=== PATIENT | female | born 1955 | race Caucasian/White ===

== ENCOUNTER → 2023-11-03 07:39 | Outpatient (REF) | payer MEDICARE, OTHER, SELFPAY | LOC: HWRAD 07:39 | PROVIDERS: ATTENDING PHYSICIAN Obstetrics & Gynecology; FAMILY PHYSICIAN Nurse Practitioner | DX: Z12.31 Encounter for screening mammogram for malignant neoplasm of breast (principal); Z13.820 Encounter for screening for osteoporosis; Z78.0 Asymptomatic menopausal state | CPT/HCPCS: 77063; 77067; 77080 ==

== ENCOUNTER 2023-12-17 13:22 | Inpatient (IN) | payer MEDICARE, OTHER, SELFPAY ==
[2023-12-17] VITALS (9 sets, daily range): BP systolic 126–152; BP diastolic 64–86; BMI 25.6; BMI 24.8
--- NOTE | 2023-12-17 09:49 | EDRN ---
Dr. Mcdowell in room w/ pt.
[2023-12-17 09:55] LABS: Glucose - Point of Care 123 mg/dl (70-99)
[2023-12-17 10:01] LABS: % Basophils 0.6 % (0-2); % Immature Granulocytes 0.4 % (0-0.5); % Lymphocytes 14.7 % (20.5-51.1); % Monocytes 7.7 % (1.7-9.3); % Neutrophils 76.6 % (42.2-75.2); Absolute Basophils 0.1 10^3/uL (0-0.2); Absolute Lymphocytes 1.2 10^3/uL (1.2-3.4); Absolute Monocytes 0.6 10^3/uL (0.1-0.6); Absolute Neutrophils 6.3 10^3/uL (1.4-6.5); Hematocrit 44.2 % (37.0-47.0); Hemoglobin 15.2 g/dL (12.0-16.0); Mean Corp Hgb Conc. 34.4 g/dL (33.0-37.0); Mean Corpuscular Hgb 30.5 pg (27.0-31.0); Mean Corpuscular Volume 88.6 fL (81.0-99.0); Mean Platelet Volume 9.4 fL (7.4-10.4); Nucleated Red Blood Cells % 0 %; Platelet Count 261 10^3/uL (130-400); Red Blood Cell Count 4.99 10^6/uL (4.20-5.40); Red Cell Dist. Width 12.9 % (11.5-14.5); White Blood Cell Count 8.2 10^3/uL (4.8-10.8)
--- NOTE | 2023-12-17 10:02 | ED.CVA ---
History of Present Illness
General
Chief Complaint: CVA/TIA Symptoms
Source: patient and family
Exam Limitations: none
Time Seen by Provider: 12/17/23 09:43
Nursing documentation reviewed up to this point in time: agreed with
Onset of Stroke Symptoms
Onset of symptoms known: Yes
Date of onset of symptoms: 12/10/23
Time pt last seen normal is known: No
Date last time pt seen normal: 12/10/23
History of Present Illness
History of Present Illness:
The patient is a very pleasant 68-year-old female with a past medical history of hypertension and hyperlipidemia who reports 1 week of weakness in her right leg, causing her to drag her right leg with walking. Patient reports that she grew more
concerned when yesterday, she noticed that her right hand started to tingle and she experienced weakness in her right arm and hand. Patient reports that her handwriting has completely changed due to heaviness in the right hand. Patient states that
she nearly fell this morning trying to walk to the bathroom due to the dragging of her right foot. Patient denies any difficulty swallowing or speaking. She denies headache and vision changes. Patient states this is never happened before. She
denies neck and back pain. She denies recent injury or fever. Patient states she is very concerned because her brother about 2 years ago of ALS.
Review of Systems
Review of Systems
Allergies reviewed?: Yes
All Other Systems: ROS reviewed and negative except as documented in HPI and ROS
Constitutional: Reports fatigue
EENT: Reports no symptoms
Respiratory: Reports no symptoms
Cardiac: Reports no symptoms
ABD/GI: Reports no symptoms
: Reports no symptoms
Musculoskeletal: Reports no symptoms
Skin: Reports no symptoms
Neurological: Reports weakness and numbness
Endocrine: Reports no symptoms
Hematologic/Lymphatic: Reports no symptoms
Psychiatric: Reports no symptoms
Phy Exam
Physical Exam
Physical Exam:
Physical Exam
General: no apparent distress, not acutely ill. Well and comfortable appearing. Conversational, smiling
Neck: supple. no meningeal signs. normal psoterior pharynx
Heart: s1/s2 regular rate and rhythm, no murmur. equal radial pulses.
Lungs: no acute respiratory distress. clear bilaterally
Abdomen: normal bowel sounds. not tender. no CVAT
Neuro: alert and orientedx3. Cranial nerves equal and symmetric bilaterally. Extraocular muscles intact. Equal sensation in face and cheeks bilaterally. 5 out of 5 strength in upper extremities without drift. Patient
notes a sense of tingling and decreased sensation limited to right hand. Otherwise, patient states she has equal sensation in upper extremities bilaterally. Patient has 5 out of 5 strength in left lower extremity. Patient has mild drifting of
right lower extremity after 6 to 7 seconds but is certainly resist gravity in her right leg. Equal sensation of bilateral lower extremities. Speech sounds completely clear and normal.
Skin: no rash
Psychiatric: well kept. interactive and cooperative
Extremities: no edema. no calf tenderness. negative homans. good distal pulses
Course
Orders/Labs/Results
Orders:
Orders
12/17/23 Breakfast
Cholesterol Lowering
Cholesterol Lowering: Sodium, 2 Gram
12/17/23 09:47
Electrocardiogram (*1) Urgent
Reason for Study: Chest Pain
Cardiac Monitoring- Treatment ONCE
EKG- Treatment ONCE
IV Insert/Care/Rem.- Treatment PRN
12/17/23 09:56
Complete Blood Count/With Diff Urgent
Comprehensive Metabolic Panel Urgent
Prothrombin Time Urgent
Troponin I Urgent
12/17/23 10:03
CT Head W/o Iv Contrast Urgent
Comment:
Reason For Exam: R arm and R leg weakness/CVA
12/17/23 11:48
Dexamethasone Sod Phosphate [Decadron] 4 mg IV NOW STA
Iohexol [Omnipaque] See Protocol PO NOW STA
12/17/23 11:50
Iohexol [Omnipaque] 50 ml .ROUTE .STK-MED ONE
12/17/23 12:07
CT Chest/abd/pel W Iv Cont Urgent
Reason For Exam: malignancy
12/17/23 12:45
Neurosurgery Consult Urgent
Consulting Provider: Joel Butler
Was physician already notified: Yes
12/17/23 12:46
MRI Brain [MR Brain W/o & With Contrast] Routine
Comment:
Reason For Exam: weakness,brain masses on CT
Recent pill cam endoscopy?: Yes
12/17/23 12:47
ONCOLOGY CONSULT Urgent
Consulting Provider: Boni Wood
Was physician already notified: Yes
12/17/23 13:00
0.9% Sodium Chloride 1000 ml [Nss] 1,000 ml IV 60 mls/hr
Levetiracetam Injectable [Keppra] 500 mg IV Q12
12/17/23 13:06
CA 125 Urgent
CA 19-9 [S] Urgent
CEA Urgent
12/17/23 13:08
Admit/Transfer Patient As Directed
Co-Sign Provider:
Level of Care: Inpatient admission
Assign to:: Medical/Surgical
Physician / Group: mera heaton
Diagnosis: RLE weakness and numbness,Brain masses
Reason for Hospitalization: RLE weakness and numbness,Brain masses
Expected length of stay greater than two midnights?: Yes
ELOS- Estimated Length of Stay in days: 3
I certify the patient meets the requirements for IP care: Yes
12/17/23 13:09
PRN Pain Medication Management As Directed
May give lesser potent ordered pain med per pt: Yes
preference::
Protocol:: Medication orders for pain may be administered in a
manner that supports deferring to patient preference
when the pt is:
- Requesting an ordered lesser potent pain medication.
Least to most potent pain medications are defined
as: acetaminophen < NSAID < tramadol < opioids
(morphine, oxycodone, hydromorphone).
- Requesting a lesser dose of the same medication IF
ORDERED.
- Requesting a less intrusive route of administration
if both routes are prescribed by the provider (PO <
IV).
12/17/23 13:10
Code Status As Directed
Resuscitation Status: Full Code
12/17/23 14:25
Bisacodyl [Dulcolax] 10 mg RECTAL [id number] PRN
Docusate W/Senna [Senokot-S] 1 tablet PO BIDPRN PRN
Polyethylene Glycol Powder [Miralax] 17 grams PO DAILYPRN PRN
12/17/23 14:25
Activity As Directed
Activity Level: As Tolerated
Intake/ Output As Directed
Frequency: Per unit guidelines
Neurological Checks As Directed
Frequency: q4h
Pneumatic Compression Sleeves As Directed
Type: Knee high
Vital Signs As Directed
Frequency: Per unit guidelines
Weight As Directed
Frequency: Daily
Pulse Ox/spot Check [RESP] Routine
Quantity: 1
DX Deep Vein Thrombosis Video Routine
12/17/23 18:00
Dexamethasone Sod Phosphate [Decadron] 4 mg IV Q6H
12/18/23 06:00
Complete Blood Count/With Diff IN AM
Comprehensive Metabolic Panel IN AM
12/18/23 08:00
Amlodipine [Norvasc] 5 mg PO DAILY
12/19/23 06:00
Complete Blood Count/With Diff IN AM
Comprehensive Metabolic Panel IN AM
Abnormal Lab Results
12/17/23 12/17/23
09:54 09:56
Neutrophils % 76.6 H %
(42.2-75.2)
Lymphocytes % 14.7 L %
(20.5-51.1)
Glucose 130 H mg/dl
(70-99)
Calcium 10.3 H mg/dl
(8.4-10.2)
POC Glucose 123 H mg/dl
(70-99)
12/17/23 09:56
12/17/23 09:56
Vital Signs
Initial and Last Documented VS:
Initial Vital Signs
Temp Pulse Resp BP Pulse Ox
98.1 F 97 18 152/86 97
12/17/23 09:34 12/17/23 09:34 12/17/23 09:34 12/17/23 09:34 12/17/23 09:34
Last Documented Vital Signs
Temp Pulse Resp BP Pulse Ox
97.9 F 85 18 149/81 98
12/17/23 14:36 12/17/23 14:36 12/17/23 14:36 12/17/23 14:36 12/17/23 14:36
MDM/Problems Addressed
Differential Diagnosis Includes:
Acute CVA, intracranial mass, spinal lesion
MDM/Problems Addressed:
Patient presents with acute right arm and right leg weakness
Chronic conditions affecting care:
Given history of hypertension, patient can be under increased risk of stroke
Chronic conditions affecting care: HTN
Acute Exacerbation and/or Progression of Chronic Illness:
Patient is acutely hypertensive, however, it is not significantly and patient certainly appears anxious in the ED which could contribute to this.
Acute Exacerbation and/or Progression of Chronic Illness: HTN
*Radiology
Radiology exam reviewed: radiology read reviewed
*Pulse Oximetry
Patient hypoxic: no
*EKG
Interpreted by ED Provider?: Yes
Interpretation: abnormal
Comparison EKG: no comparison EKG present
Rate: normal
Rhythm: sinus
[place]: left axis deviation
Interval: normal interval
QRS Pattern: normal QRS
Ischemia: non-specific ST changes
*[employer] Interpretation
Rate: normal
Interpretation: normal
Rhythm: sinus
*Critical Care Note
Total Time (30-74mins, 75-104mins- exclusive of procedures): 45 minutes
comment:
45 minutes critical care given to patient including review of her lab work, CT report, discussing the case with radiology, neurology, neurosurgery as well as the hospitalist.
Patient Management
Social determinants of health affecting care: Living situation and Strong social support
Discussion with other providers: Hospitalist and Other (Neurology aware of the patient, Dr. Turcios. Neurosurgery, Dr. Butler also aware of the patient and following the patient.)
Escalation/DeEscalation of care consider admission/obs:
Neurosurgery recommended Decadron 4 mg every 6 hours which we have given her first dose here in the ED. Patient appears well and comfortable. She is fully awake, alert and speaking without any headache or any sign of distress. We will order a CAT
scan of patient's chest, abdomen and pelvis to look for any primary source of malignancy. I did talk to the patient about our concerns for possible cancer and she understands this.
ED Attending Note
-
Portions of this chart may have been created with voice recognition software.� Occasional wrong word or��sound alike� substitutions may have occurred due to the inherent limitations of voice recognition software.
Discharge Plan
Departure
Patient Disposition: Admit
Date of Disposition: 12/17/23
Time of Disposition: 11:42
Presentation/result/management discussed w/ accepting MD/DO: Hospitalist
Patient with high blood pressure during this ER visit?: Yes
Condition: Good
Covid-19: Not Applicable
Discharge Problem:
Intracranial mass with edema, Right leg and right arm weakness
Interventions
Interventions:
*Risk Screen - Suicide Last Done: 12/17/23 09:34
*General Assessment Last Done: 12/17/23 10:01
*Neglect/Abuse Screening Last Done: 12/17/23 09:34
ED- Fall Risk Assessment Last Done: 12/17/23 10:01
*ED COVID-19 Vaccine History Last Done: 12/17/23 10:01
*Nursing Disposition Last Done: 12/17/23 14:19
ED- Pulmonary Assessment Last Done: 12/17/23 10:05
ED- Neurological Assessment Last Done: 12/17/23 10:05
ED- Cardiac Assessment Last Done: 12/17/23 10:05
ED Swallowing Screen Last Done: 12/17/23 10:10
Discharge Date and Time
Discharge Date/Time: 12/17/23 14:20
[2023-12-17 10:12] LABS: INR 0.98; PT 13.3 Sec (11.4-14.6)
[2023-12-17 10:17] LABS: ALT (SGPT) 23 U/L (0-35); AST (SGOT) 27 U/L (14-36); Alkaline Phosphatase 59 U/L (38-126); Blood Urea Nitrogen 10 mg/dl (7-17); Calcium 10.3 mg/dl (8.4-10.2); Carbon Dioxide 28 mmol/L (22-30); Chloride 102 mmol/L (98-107); Estimated Creatinine Clearance 65 ml/min; Glucose 130 mg/dl (70-99); Potassium 3.8 mmol/L (3.5-5.1); Sodium 143 mmol/L (135-145); Total Bilirubin 0.4 mg/dl (0.2-1.3); Total Protein 7.7 g/dl (6.3-8.2); eGFR > 60.00
[2023-12-17 10:28] LABS: Troponin I < 0.012 ng/ml
[2023-12-17] MEDS: DECADRON 4 MG IV ×3 (11:53→23:44)
[2023-12-17] MEDS: OMNIPAQUE 50 ML PO (11:58)
--- NOTE | 2023-12-17 12:50 | HPS.HSE ---
Family Physician
-
Family Physician: RASHAD Chase
Chief Complaint
-
Right arm and leg weakness
History of Present Illness
68-year-old female with past medical history of hypertension, hyperlipidemia, bladder prolapse status post surgery came to the hospital with right lower extremity weakness which started about a week ago. Now she has to drag her right leg with
walking. Starting yesterday she also started noticing numbness and tingling in her right upper extremity. Denies any blurry vision. Denies any recent illness. Denies any sick contacts. Denies any chest pain, shortness of breath, nausea,
vomiting, diarrhea, constipation. Denies any difficulty swallowing.
Medical History
Past Medical History
Past Medical History: Reports HTN, Hypercholesterolemia and Other (Bladder prolapse)
Past Surgical History: Reports Urological
Social History
Tobacco: Non-smoker
Family History
Family History: Not pertinent
Allergies / Home Medications
Allergies reflects when Allergies were last updated in [employer].
Home Medications with original date entered in [employer]
Allergy/Medication List:
Allergies
Allergy/AdvReac Type Severity Reaction Status Date / Time
No Known Allergies Allergy Unverified 12/17/23 09:49
Home Medications
amlodipine 5 mg tablet (Norvasc) 5 mg PO DAILY 12/17/23
atorvastatin 10 mg tablet (Lipitor) 10 mg PO HS 12/17/23
calcium carbonate 500 mg PO DAILY 12/17/23
cholecalciferol (vitamin D3) 25 mcg (1,000 unit) tablet (Vitamin D3) 25 mcg PO DAILY 12/17/23
Review of Systems
-
History Source: Patient
A 12 point ROS was completed and negative except as noted: Yes
Neurological: Reports Weakness and Numbness
Physical Exam
Vital Signs
Vital Signs
Temp Pulse Resp BP Pulse Ox
98.1 F 86 25 143/73 97
12/17/23 09:34 12/17/23 11:07 12/17/23 11:07 12/17/23 11:07 12/17/23 11:07
Physical Exam
General: Well Nourished and No Apparent Distress
HEENT: Anicteric and Moist mucous membranes
Respiratory: Clear and Non Labored Respirations; No Wheezes
Cardiac: S1/S2 and Regular Rhythm
Breast: Deferred by me
GI: Soft, Non Tender, Non Distended and Normal Bowel Sounds
Rectal: Deferred by Provider
Genito-urinary: No Cardona
Musculoskeletal: No Edema
Neuro: Awake, Alert, Oriented and AO x 3
Psych: Calm and Intact Judgment/Insight
Laboratory Results
-
12/17/23 09:56
12/17/23 09:56
Laboratory Results
PT 13.3 Sec (11.4-14.6) 12/17/23 09:56
INR 0.98 12/17/23 09:56
Total Bilirubin 0.4 mg/dl (0.2-1.3) 12/17/23 09:56
AST 27 U/L (14-36) 12/17/23 09:56
ALT 23 U/L (0-35) 12/17/23 09:56
Alkaline Phosphatase 59 U/L (38-126) 12/17/23 09:56
Troponin I < 0.012 ng/ml 12/17/23 09:56
Data Reviewed
-
CT Scan: Report Reviewed by me, Discussed with Physician and Discussed with Patient
Lab Data: Labs Reviewed by me and Discussed with Patient
Impression/Plan
-
Right-sided weakness and numbness likely secondary to multiple brain masses with surrounding edema
Spoke with neurosurgery, start Keppra, Decadron
Check [place] CT
MRI brain
CT brain with multiple brain masses on left with surrounding edema, no significant midline shift. Concern for metastatic disease
Neurology consulted
Oncology consulted
Recent normal mammogram 11/02
Up-to-date with colonoscopy
cw neurochecks
check CEA,CA19-9,CA125
Hypercalcemia
Fluids
Hold vit D and calcium supplements
History of hypertension
Continue blood OP
Hyperlipidemia
History of bladder prolapse as per surgery
DVT prophylaxis
SCDs
Full code
I spent a total of 77 minutes with the patient or on the floor. More than 50% of this time involved counseling and coordination of care.
--- NOTE | 2023-12-17 12:58 | EDRN ---
MRI interviewing pt at this time.
--- NOTE | 2023-12-17 13:38 | EDRN ---
Pt left for MRI at pili 13:05 w/out having ordered IVF and laci administered w/ Dr. Alvarez notified and responded that it is okay. Also asked about CT and informed it is to be pili 14:00.
--- NOTE | 2023-12-17 13:50 | EDRN ---
Verbal report called to Blake MOJICA (? sp) w/ update on MRI, CR, keppra and what pt knows about the CT of head findings.
[2023-12-17 14:00] LABS: CEA 6.99 ng/ml
[2023-12-17] MEDS: KEPPRA 500 MG IV ×2 (14:00→20:04)
--- NOTE | 2023-12-17 14:18 | EDRN ---
Pt to go to admission bed after CT scan. Daughter and family member sent to [phone] to [address].
[2023-12-17] MEDS: NSS 1000 IV (14:30)
--- NOTE | 2023-12-17 15:19 | PTCARENOTE ---
Pt was received from ED at 1430. Pt ambulated to the room. Steady gait. Reporting right arm mild weakness and tingling. Care plan reviewed with pt. Family at the bedside.
[2023-12-18] MEDS: DECADRON 4 MG IV ×4 (05:25→23:50)
[2023-12-18] MEDS: NSS 1000 IV (05:25)
[2023-12-18 06:00] VITALS: BMI 25.2
[2023-12-18 07:00] LABS: % Basophils 0.1 % (0-2); % Immature Granulocytes 0.3 % (0-0.5); % Lymphocytes 10.4 % (20.5-51.1); % Monocytes 1.6 % (1.7-9.3); % Neutrophils 87.6 % (42.2-75.2); Absolute Lymphocytes 0.8 10^3/uL (1.2-3.4); Absolute Monocytes 0.1 10^3/uL (0.1-0.6); Absolute Neutrophils 6.9 10^3/uL (1.4-6.5); Hematocrit 41.5 % (37.0-47.0); Hemoglobin 13.9 g/dL (12.0-16.0); Mean Corp Hgb Conc. 33.5 g/dL (33.0-37.0); Mean Corpuscular Hgb 30.3 pg (27.0-31.0); Mean Corpuscular Volume 90.4 fL (81.0-99.0); Mean Platelet Volume 9.7 fL (7.4-10.4); Nucleated Red Blood Cells % 0 %; Platelet Count 264 10^3/uL (130-400); Red Blood Cell Count 4.59 10^6/uL (4.20-5.40); White Blood Cell Count 7.9 10^3/uL (4.8-10.8)
[2023-12-18 07:20] LABS: ALT (SGPT) 20 U/L (0-35); AST (SGOT) 23 U/L (14-36); Albumin 4.5 g/dl (3.5-5.0); Alkaline Phosphatase 52 U/L (38-126); Blood Urea Nitrogen 15 mg/dl (7-17); Calcium 9.7 mg/dl (8.4-10.2); Carbon Dioxide 23 mmol/L (22-30); Chloride 107 mmol/L (98-107); Estimated Creatinine Clearance 76 ml/min; Glucose 141 mg/dl (70-99); Sodium 144 mmol/L (135-145); Total Bilirubin 0.5 mg/dl (0.2-1.3); Total Protein 6.9 g/dl (6.3-8.2); eGFR > 60.00
[2023-12-18] MEDS: NORVASC 5 MG PO (07:42)
[2023-12-18] MEDS: KEPPRA 500 MG IV ×2 (07:42→19:58)
[2023-12-18 07:50] VITALS: BP 150/76
--- NOTE | 2023-12-18 09:43 | CON.ONC ---
Impression
Impression
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
Plan
Plan
discussed results of imaging with patient-- copies given to her; she has no prior personal hx of malignancy (stable ovarian cyst) nor is there imaging c/w mets or primary disease for which other than a PHARMACIST CRITICAL CARE biopsy would provide diagnosis -- consult
neurosurgery for biopsy
Patient History
History of Present Illness
68-year-old white female with no history of hypertension and hypercholesterolemia noted 2 to 3 days of right leg weakness progressing to right leg and right arm weakness prompting ER evaluation, Laboratory studies were essentially normal other
than for mild hypercalcemia of 10.3 as well as a normal CBC with differential. Imaging studies noted a CT scan of the head without IV contrast for which unenhanced imaging noticed at least 3 intracranial lesions including the left frontal lobe left
cerebellar and right cerebellar lesions all with edema. She was admitted for IV dexamethasone as well as seizure medications and further workup. CT scans of the chest abdomen and pelvis noted no Abnormalities suggestive of either a metastatic
lesion or primary malignancy. A 3 cm left ovarian cyst has been unchanged over a period of 2 years for which she had follow-up with notes backer up. Brain MRI with IV contrast noted multiple enhancing intracranial masses including a 0.4 cm left
inferior cerebellar 0.7 cm right cerebellar 2.8 cm left cerebellar pontine angle masses as well as 0.6 cm superior right temporal lesion 0.6 cm left medial occipital lobe and 1.8 cm superior medial left frontal lobe with associated hemorrhagic
component as well as a 0.7 cm anterior superior left frontal lobe lesion. Vasogenic edema was noted with all lesions greatest in the superior left frontal and parietal lobes. There was no evidence of mass effect or midline shift
She notes improvement in the strength of her arm and leg since admission for IV dexamethasone
Past-Medical/Surgical History
Hypertension; hyperlipidemia;
Patient Medication
�Medication �Instructions �Recorded �Confirmed �Last Taken �Type
amlodipine 5 mg tablet (Norvasc) 5 mg PO DAILY 12/17/23 12/17/23 12/17/23 History
atorvastatin 10 mg tablet (Lipitor) 10 mg PO HS 12/17/23 12/17/23 12/16/23 History
calcium carbonate 500 mg PO DAILY 12/17/23 12/17/23 Unknown History
cholecalciferol (vitamin D3) 25 25 mcg PO DAILY 12/17/23 12/17/23 12/16/23 History
mcg (1,000 unit) tablet (Vitamin
D3)
Active Medications
Generic Name Dose Route Start Last Admin
Trade Name Freq PRN Reason Stop Dose Admin
Amlodipine Besylate 5 mg 12/18/23 08:00 12/18/23 07:42
Amlodipine 5 Mg Tablet PO 01/15/24 07:59 5 mg
DAILY RITU Administration
Bisacodyl 10 mg 12/17/23 14:25
Bisacodyl 10 Mg Rectal Suppository RECTAL 01/14/24 14:24
[id number] PRN
constipation
Dexamethasone Sodium Phosphate 4 mg 12/17/23 18:00 12/18/23 05:25
Dexamethasone 4 Mg/Ml 1 Ml Vial IV 01/14/24 17:59 4 mg
Q6H RITU Administration
Sodium Chloride 1,000 mls @ 60 mls/hr 12/17/23 13:00 12/18/23 05:25
Nss IV 1,000 mls
.[id number] RITU Administration
Levetiracetam 500 mg 12/17/23 13:00 12/18/23 07:42
Levetiracetam (100 Mg/Ml) 500 Mg/5 Ml Vial IV 01/14/24 12:59 500 mg
Q12 RITU Administration
Polyethylene Glycol 17 grams 12/17/23 14:25
Polyethylene Glycol Powder 17 Grams Packet PO 01/14/24 14:24
DAILYPRN PRN
constipation
Senna/Docusate Sodium 1 tablet 12/17/23 14:25
Docusate W/Senna (Shelia-Colace) Tablet PO 01/14/24 14:24
BIDPRN PRN
constipation
Review of Systems
-
History Source: Patient
All Other Systems: Reviewed and Negative (other than as per HPI)
Physical Exam
-
General: Well Developed and No Apparent Distress
HEENT: Moist Mucous Membranes
Cardiology: Normal Sinus Rhythm
Pulmonary: Clear
GI: Soft and Normal Bowel Sounds
Musculoskeletal: No Clubbing, No Cyanosis and No Edema
Extremities: Pulses Present
Neurology: Non Focal
Psych: Calm
Labs
Lab Results
WBC 7.9 10^3/uL (4.8-10.8) 12/18/23 06:23
RBC 4.59 10^6/uL (4.20-5.40) 12/18/23 06:23
Hgb 13.9 g/dL (12.0-16.0) 12/18/23 06:23
Hct 41.5 % (37.0-47.0) 12/18/23 06:23
MCV 90.4 fL (81.0-99.0) 12/18/23 06:23
MCH 30.3 pg (27.0-31.0) 12/18/23 06:23
MCHC 33.5 g/dL (33.0-37.0) 12/18/23 06:23
RDW 13.0 % (11.5-14.5) 12/18/23 06:23
Plt Count 264 10^3/uL (130-400) 12/18/23 06:23
MPV 9.7 fL (7.4-10.4) 12/18/23 06:23
Abs Immat Gran (auto) 0.0 10^3/uL (0-0.05) 12/18/23 06:23
Absolute Neuts (auto) 6.9 10^3/uL (1.4-6.5) H 12/18/23 06:23
Absolute Lymphs (auto) 0.8 10^3/uL (1.2-3.4) L 12/18/23 06:23
Absolute Monos (auto) 0.1 10^3/uL (0.1-0.6) 12/18/23 06:23
Absolute Eos (auto) 0.0 10^3/uL (0-0.7) 12/18/23 06:23
Absolute Basos (auto) 0.0 10^3/uL (0-0.2) 12/18/23 06:23
Immature Gran % 0.3 % (0-0.5) 12/18/23 06:23
Neutrophils % 87.6 % (42.2-75.2) H 12/18/23 06:23
Lymphocytes % 10.4 % (20.5-51.1) L 12/18/23 06:23
Monocytes % 1.6 % (1.7-9.3) L 12/18/23 06:23
Eosinophils % 0.0 % (0-6) 12/18/23 06:23
Basophils % 0.1 % (0-2) 12/18/23 06:23
Creatinine 0.6 mg/dL (0.6-1.0) 12/18/23 06:23
Vital Signs
Vital Signs
Temp Pulse Resp BP Pulse Ox
97.7 F 97 20 150/76 96
12/18/23 07:50 12/18/23 07:50 12/18/23 07:50 12/18/23 07:50 12/18/23 07:50
--- NOTE | 2023-12-18 11:52 | W.PN.HOSP.TC ---
Addendum entered and electronically signed by Yeyo Alvarez MD 12/18/23 17:21:
Discussed with oncology and neurosurgery. Suggested brain biopsy. Neurosurgery will coordinate tomorrow with patient to be transferred to [facility] for biopsy. This has been discussed with the patient and she is agreeable.
Original Note:
Today's Communication/Plan
-
Monitor vital signs
see plan
Oncology, neurosurgery to see today
Continue with Decadron
PT/OT
Assessment / Plan
Assessment / Plan
General: Well Nourished and No Apparent Distress
HEENT: Anicteric and Moist mucous membranes
Respiratory: Clear and Non Labored Respirations; No Wheezes
Cardiac: S1/S2 and Regular Rhythm
GI: Soft, Non Tender, Non Distended and Normal Bowel Sounds
Genito-urinary: No Cardona
Musculoskeletal: No Edema
Neuro: Awake, Alert, Oriented and AO x 3
Psych: Calm and Intact Judgment/Insight
Right-sided weakness and numbness likely secondary to multiple brain masses with surrounding edema
Spoke with neurosurgery, Kehinde Cordova
CT scan noted; no lymphadenopathy. No signs of lung malignancy. Complex lesion in the right ovary, per radiology only mildly increased in size. No other finding highly suspicious for metastatic disease in chest, abdomen or pelvis. 0.4 cm
subpleural pulmonary nodule in the left lower lobe.
MRI brain noted with multiple lesions with surrounding edema. One of the lesions in the superior medial left frontal lobe is hemorrhagic with large amount of surrounding vasogenic edema
CT brain with multiple brain masses on left with surrounding edema, no significant midline shift. Concern for metastatic disease
Neurology consulted
Oncology consulted
Recent normal mammogram 11/02
Up-to-date with colonoscopy
cw neurochecks
CA19-9,CA125 pending
had basal cell removed recently. no hx of melanoma
Hypercalcemia
imrpoving
Hold vit D and calcium supplements
History of hypertension
Continue blood OP
Hyperlipidemia
History of bladder prolapse as per surgery
DVT prophylaxis
SCDs
Full code
I spent a total of 52 minutes with the patient or on the floor. More than 50% of this time involved counseling and coordination of care.
Anticipated Discharge: > 48 hours
Subjective/Interval History
-
Date of Service: December 18, 2023
feels weakness is better
Objective Data
-
Labs:
Laboratory Results
12/18/23
06:23
WBC 7.9
Hgb 13.9
Hct 41.5
Plt Count 264
Sodium 144
Potassium 4.0
Chloride 107
Carbon Dioxide 23
BUN 15
Creatinine 0.6
Glucose 141 H
Calcium 9.7
Total Bilirubin 0.5
AST 23
ALT 20
Alkaline Phosphatase 52
Vital Signs:
Vital Signs
Temp Pulse Resp BP Pulse Ox
97.7 F 97 20 150/76 96
12/18/23 07:50 12/18/23 07:50 12/18/23 07:50 12/18/23 07:50 12/18/23 07:50
I&O
12/17/23 12/18/23 12/19/23
06:59 06:59 06:59
Intake Total 660 / 660
Balance 660 / 660
[2023-12-18 14:16] VITALS: BP 140/70
--- NOTE | 2023-12-18 14:50 | CM ---
CM following re: d/c planning.
CM met with pt at bedside to complete IA.
Pt resides alone, states she is independent with mobility and ADLs.
She denies DME and VN. She is employed and drives.
PCP is Dr. Pritchett and pharmacy [facility] in [place].
Per therapy, recs for acute rehab at this time.
CM discussed this with pt, explained recommendations may change, but advised to consider acute.
She will think upon this. PM&R will need to see pt as well.
Pt would be most interested in [facility], as her kids live up that way.
CM will continue to follow for d/c needs.
[2023-12-18 15:15] VITALS: BP 131/68
[2023-12-18 23:46] VITALS: BP 124/61
[2023-12-19] MEDS: DECADRON 4 MG IV (04:43)
[2023-12-19 06:00] VITALS: BMI 25.3
[2023-12-19 07:35] VITALS: BP 128/61
[2023-12-19 08:01] LABS: % Basophils 0.1 % (0-2); % Immature Granulocytes 0.7 % (0-0.5); % Lymphocytes 6.6 % (20.5-51.1); % Monocytes 5.7 % (1.7-9.3); % Neutrophils 86.9 % (42.2-75.2); Absolute Immature Granulocytes 0.1 10^3/uL (0-0.05); Absolute Monocytes 0.9 10^3/uL (0.1-0.6); Absolute Neutrophils 13.1 10^3/uL (1.4-6.5); Hematocrit 40.3 % (37.0-47.0); Hemoglobin 13.4 g/dL (12.0-16.0); Mean Corp Hgb Conc. 33.3 g/dL (33.0-37.0); Mean Corpuscular Hgb 29.8 pg (27.0-31.0); Mean Corpuscular Volume 89.8 fL (81.0-99.0); Nucleated Red Blood Cells % 0 %; Platelet Count 265 10^3/uL (130-400); Red Blood Cell Count 4.49 10^6/uL (4.20-5.40); Red Cell Dist. Width 13.1 % (11.5-14.5); White Blood Cell Count 15.1 10^3/uL (4.8-10.8)
[2023-12-19] MEDS: KEPPRA 500 MG IV (08:29)
[2023-12-19] MEDS: NORVASC 5 MG PO (08:29)
[2023-12-19 08:30] LABS: ALT (SGPT) 18 U/L (0-35); AST (SGOT) 20 U/L (14-36); Albumin 4.1 g/dl (3.5-5.0); Alkaline Phosphatase 44 U/L (38-126); Blood Urea Nitrogen 19 mg/dl (7-17); Calcium 9.3 mg/dl (8.4-10.2); Carbon Dioxide 25 mmol/L (22-30); Chloride 107 mmol/L (98-107); Estimated Creatinine Clearance 76 ml/min; Glucose 121 mg/dl (70-99); Potassium 4.1 mmol/L (3.5-5.1); Sodium 145 mmol/L (135-145); Total Bilirubin 0.3 mg/dl (0.2-1.3); Total Protein 6.6 g/dl (6.3-8.2); eGFR > 60.00
--- NOTE | 2023-12-19 08:45 | CM ---
Patient for transfer to [facility] today. CM will continue to follow for discharge planning needs.
Plan; transfer to [facility]
--- NOTE | 2023-12-19 09:02 | W.PN.HOSP.TC ---
Today's Communication/Plan
-
Transfer
Assessment / Plan
Assessment / Plan
General: Well Nourished and No Apparent Distress
HEENT: Anicteric and Moist mucous membranes
Respiratory: Clear and Non Labored Respirations; No Wheezes
Cardiac: S1/S2 and Regular Rhythm
GI: Soft, Non Tender, Non Distended and Normal Bowel Sounds
Genito-urinary: No Cardona
Musculoskeletal: No Edema
Neuro: Awake, Alert, Oriented and AO x 3
Psych: Calm and Intact Judgment/Insight
Right-sided weakness and numbness - likely secondary to multiple brain masses with surrounding edema. Awaiting transfer to [facility] today for brain biopsy. Discussed with Dr. Butler. Patient agreeable to transfer. Right lower
extremity weakness improving as per patient, does have right upper extremity tingling and weakness.
Continue Keppra, Decadron
CT scan noted; no lymphadenopathy. No signs of lung malignancy. Complex lesion in the right ovary, per radiology only mildly increased in size. No other finding highly suspicious for metastatic disease in chest, abdomen or pelvis. 0.4 cm
subpleural pulmonary nodule in the left lower lobe.
MRI brain noted with multiple lesions with surrounding edema. One of the lesions in the superior medial left frontal lobe is hemorrhagic with large amount of surrounding vasogenic edema
CT brain with multiple brain masses on left with surrounding edema, no significant midline shift. Concern for metastatic disease
Neurology consulted
Oncology consulted
Recent normal mammogram 11/02
Up-to-date with colonoscopy
cw neurochecks
CA19-9,CA125 pending
had basal cell removed recently. no hx of melanoma
Hypercalcemia -resolved.
Hold vit D and calcium supplements
Essential hypertension
Continue blood OP
Hyperlipidemia -atorvastatin.
History of bladder prolapse as per surgery
DVT prophylaxis
SCDs
Full code
Dispo -stable for transfer to [facility] today.
32 minutes spent in transfer process.
Anticipated Discharge: Today
Subjective/Interval History
-
Date of Service: December 19, 2023
Patient seen and examined. No complaints.
Objective Data
-
Labs:
Laboratory Results
12/19/23
06:51
WBC 15.1 H
Hgb 13.4
Hct 40.3
Plt Count 265
Sodium 145
Potassium 4.1
Chloride 107
Carbon Dioxide 25
BUN 19 H
Creatinine 0.6
Glucose 121 H
Calcium 9.3
Total Bilirubin 0.3
AST 20
ALT 18
Alkaline Phosphatase 44
Vital Signs:
Vital Signs
Temp Pulse Resp BP Pulse Ox
98.8 F 77 18 121/53 95
12/19/23 07:35 12/19/23 08:29 12/19/23 07:35 12/19/23 08:29 12/19/23 07:35
I&O
12/18/23 12/19/23 12/20/23
06:59 06:59 06:59
Intake Total 660 / 660 1140 / 1140
Balance 660 / 660 1140 / 1140
Review of Systems
-
History Source: Patient
All other systems: Reviewed and negative
--- NOTE | 2023-12-19 09:05 | W.DS.TRANS ---
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
-
Discharge Instructions:
Instructions:
Stand-Alone Forms:
Changes to Home Medications: No
Discharge Medications:
DC Medications w/original date entered in Setup
amlodipine 5 mg tablet (Norvasc) 5 mg PO DAILY Blood Pressure 12/17/23
atorvastatin 10 mg tablet (Lipitor) 10 mg PO HS High Cholesterol 12/17/23
calcium carbonate 500 mg PO DAILY Supplement 12/17/23
cholecalciferol (vitamin D3) 25 mcg (1,000 unit) tablet (Vitamin D3) 25 mcg PO DAILY Supplement 12/17/23
Home Medication Changes
Pending Results: No
[2023-12-19 10:21] VITALS: BP 136/61
[2023-12-19 19:05] LABS: Hepatitis C Antibody Negative (Negative)
[2023-12-19 23:08] LABS: CA 19-9 19 U/mL (<=35)
== END 2023-12-19 11:20 | disposition short-term general hospital (02) | DRG 57 ==
LOC: 4 EAST ACU 13:22
PROVIDERS: ADMITTING PHYSICIAN Internal Medicine; ATTENDING PHYSICIAN Hospitalist; CONSULT PHYSICIAN Internal Medicine Hematology & Oncology; EMERGENCY PHYSICIAN Emergency Medicine; FAMILY PHYSICIAN Nurse Practitioner
DX: G81.91 Hemiplegia, unspecified affecting right dominant side (principal); C79.31 Secondary malignant neoplasm of brain; I10 Essential (primary) hypertension; E78.00 Pure hypercholesterolemia, unspecified; Z79.899 Other long term (current) drug therapy; E83.52 Hypercalcemia
CPT/HCPCS: 70450; 70553; 71260; 74177; 80053; 82378; 82962; 84484; 85025; 85610; 86301; 86304; 86803; 93005; 96374; 96375; 97162; 97166; 99291; A9575; Q9967